=== PATIENT | male | born 1975 | race Caucasian/White ===

== ENCOUNTER 2025-07-20 22:32 | Emergency (ER) | payer BC, SELFPAY ==
[2025-07-20 22:35] VITALS: BP 149/94
--- NOTE | 2025-07-21 00:57 | ED.GENMED ---
History of Present Illness
General
Chief Complaint: Skin Surface Trauma
Source: patient
Exam Limitations: none
Time Seen by Provider: 07/21/25 00:12
Nursing documentation reviewed up to this point in time: agreed with
History of Present Illness
History of Present Illness:
Note:
CHIEF COMPLAINT(S)
Laceration to the hand.
HISTORY OF PRESENT ILLNESS
The patient is a 49-year-old male who presented with a laceration to the hand/thumb region. The injury occurred while he was handling a bike lock and accidentally caused the cut with a knife. He was trying to get it open with a knife. He reports
minimal pain but notes swelling at the site. He denies any possibility of a foreign body in the wound. The patient is unsure about his last tetanus vaccination, which was more than five years ago. Upon evaluation, the decision was made to proceed
with sutures due to the depth of the wound. He denies any other injuries, denies any loss of sensation.
The patient was apprehensive about the pain, but local anesthesia was administered to numb the area before stitching. He was advised to keep the wound clean and dry for 24 hours and to watch for signs of infection.
PHYSICAL EXAM
General: Patient is well appearing and in no acute distress; non-toxic
Skin: Warm and dry, no rashes or lesions. 3 cm laceration noted to the anterior aspect of the left later hand at the base of the thumb
Head: Normocephalic, atraumatic
Eyes: Sclera non-icteric. EOMs intact.
Cardiac: Regular rate
Peripheral Vascular: Brisk capillary refill
Pulm: Normal respiratory effort
Musculoskeletal: Full ROM of phalanges and left wrist 5/5 strength against resistance, FDS and FDP testing normal
Neuro: CN II-XII intact, no focal neurologic deficits. Sensation normal.
Psychiatric: Appropriate mood and affect.
IMMUNIZATION HISTORY
The patient�s tetanus vaccination is not up to date, with the last dose given more than five years ago.
PLAN
1. Wound Closure: Suturing was performed with local anesthetic administered for pain management.
2. Tetanus Vaccination: Update tetanus vaccine due to open wound.
3. Wound Care: Instructed to keep the wound clean and dry for 24 hours and to monitor for signs of infection such as redness, drainage, or increased pain.
4. Pain Management: Advised to take ibuprofen or acetaminophen as needed.
5. Follow-up: Advised to have the stitches removed in approximately 10 days at an urgent care, here,primary, or with an orthopedist.
DIFFERENTIAL DIAGNOSIS
The Differential Diagnosis includes, in no particular order and is not limited to:
1. Soft tissue laceration
2. Tendon injury
3. Foreign body in wound
4. Nerve injury
5. Bone fracture
6. Infection
7. Contusion
8. Abrasion
9. Hematoma
10. Compartment syndrome
CHART REVIEW
Reviewed [facility], no previous ER physician documentation to review no previous discharge summaries for review
MDM/DISPOSITION
49-year-old male with no past medical history presents emergency department today with concerns of a laceration on his left anterior hand at the base of the thumb. It happened after he excellently cut his hand with a knife. On physical exam, he is
neurovascularly intact he has 5 out of 5 strength with no evidence of tendon injury. His tetanus was updated. Wound care discussed. Discussed signs of infection when to return to emergency department. Patient stable for discharge.
Review of Systems
Review of Systems
All Other Systems: ROS reviewed and negative except as documented in HPI and ROS
Phy Exam
Physical Exam
Physical Exam:
see hpi
Course
Orders/Labs/Results
Orders:
Orders
07/21/25 00:54
Tetanus/Diphth/Acelpertussis [Adacel] 0.5 ml IM .ONCE ONE
Vital Signs
Initial and Last Documented VS:
Initial Vital Signs
Temp Pulse Resp BP Pulse Ox
98.5 F 95 16 149/94 99
07/20/25 22:35 07/20/25 22:35 07/20/25 22:35 07/20/25 22:35 07/20/25 22:35
Last Documented Vital Signs
Temp Pulse Resp BP Pulse Ox
98.5 F 88 16 129/95 98
07/20/25 22:35 07/21/25 01:33 07/21/25 01:33 07/21/25 01:33 07/21/25 01:33
Procedures
Laceration Closure
Left Anterior Hand:
Status of Wound: clean
Size of Wound in cm: 3
Description of Wound Edges: sharp
Preparation: cleaned with saline and cleaned with Betadine
Anesthesia: 1% Lidocaine
Revision/Debridement: routine- no revision
Wound exploration: explored to base- no FB
Type of Closure: single layer closure
Skin Closure Material: 4-0 prolene
Number of sutures: 5
*Pulse Oximetry
SaO2: 99
Oxygen Mode of Delivery: Room air
Patient hypoxic: no
*Critical Care Note
Total Time (30-74mins, 75-104mins- exclusive of procedures): Not Applicable
ED Attending Note
-
Portions of this chart may have been created with voice recognition software.� Occasional wrong word or��sound alike� substitutions may have occurred due to the inherent limitations of voice recognition software.
Discharge Plan
Departure
Patient Disposition: Home (Routine Discharge)
Date of Disposition: 07/21/25
Time of Disposition: 01:15
Patient with high blood pressure during this ER visit?: Yes
Condition: Good
Discharge Problem:
Laceration of hand, left
Instructions: Wound Care (DC), Laceration Repair With Stitches (DC), BLOOD PRESSURE
Prescriptions:
No Action
No Current Medications
0
Activity Restrictions/Additional Instructions:
Stitches can be removed in 10 days, you can see your primary care doctor, urgent care, or return to the ER to have the stitches removed. Please keep the area clean and dry. Please keep the area dry for 24 hours. After 24 hours, you can clean the
wound with mild soap and water. Please do not scrub the wound.
Please do not cover the wound with gauze or adherent pads as this will catch on the stitches and cause them to pull.
PLEASE RETURN THE EMERGENCY DEPARTMENT IMMEDIATELY SHOULD YOU DEVELOP INCREASING PAIN, PURULENT DRAINAGE FROM THE WOUND, SURROUNDING REDNESS, FEVERS OR CHILLS, OR ANY OTHER SIGNS OR SYMPTOMS WORRISOME TO YOU.
Interventions
Interventions:
*Risk Screen - Suicide Last Done: 07/20/25 22:35
*General Assessment Last Done: 07/21/25 00:17
*Neglect/Abuse Screening Last Done: 07/20/25 22:35
*ED- Fall Risk Assessment Last Done: 07/20/25 22:35
*ED COVID-19 Vaccine History Last Done: 07/21/25 01:22
*Nursing Disposition Last Done: 07/21/25 01:33
ED-Skin Assessment Last Done: 07/21/25 00:16
Discharge Date and Time
Discharge Date/Time: 07/21/25 01:35
Print Language: ANGUILLAN
[2025-07-21] MEDS: ADACEL 0.5 ML IM (01:00)
[2025-07-21 01:33] VITALS: BP 129/95
== END 2025-07-21 01:35 | disposition home or self-care (01) ==
LOC: EMR 22:32
PROVIDERS: EMERGENCY PHYSICIAN Student in an Organized Health Care Education/Training Program
DX: S61.412A Laceration without foreign body of left hand, initial encounter (principal); W26.0XXA Contact with knife, initial encounter; Z23 Encounter for immunization
CPT/HCPCS: 90471; 12002; 99282; 90715